=== PATIENT | male | born 1995 | race African-American/Black ===

== ENCOUNTER 2022-03-30 14:30 | Emergency (ER) | payer OTHER ==
[2022-03-30] MEDS ORDERED: IBUP-2028 MT (20:22)
== END 2022-03-30 16:13 | disposition left against medical advice (07) ==
LOC: ER 14:30
DX: Z53.21 Procedure and treatment not carried out due to patient leaving prior to being seen by health care provider (principal)

== ENCOUNTER 2022-03-30 17:27 | Emergency (ER) | payer OTHER ==
[~2022-03-30] VITALS: Ht 193 cm; Wt 100.0 kg
[2022-03-30 17:39] VITALS: BP 115/58
[2022-03-30] MEDS ORDERED: IBUPROFEN 400MG TABLET PO ONE (19:00)
[2022-03-30] MEDS ORDERED: IBUP-2028 MT (20:22)
== END 2022-03-30 20:35 | disposition home or self-care (01) ==
LOC: ER 17:27
DX: R07.81 Pleurodynia (principal); Z98.890 Other specified postprocedural states
CPT/HCPCS: 71101; 99283